=== PATIENT | female | born 2000 | race Caucasian/White ===

== ENCOUNTER 2022-11-02 00:21 | Inpatient (IN) | payer BC, MEDICAID, SELFPAY ==
[2022-11-01 20:45] VITALS: RESP 16; BMI 33.1
[2022-11-01 20:51] VITALS: BP 135/83; PULSE 121
[2022-11-01 21:29] VITALS: BP 135/89; PULSE 112
[2022-11-01] MEDS: dextrose 5%-lactated ringers 1,000 ML 125 ML IV (21:35)
[2022-11-01] MEDS: ampicillin 2,000 MG in sodium chloride 0.9% (plus) 50 ML 100 MG IV (21:36)
[2022-11-01 21:44] VITALS: BP 140/86; PULSE 90
[2022-11-01 21:59] VITALS: BP 133/85; PULSE 105
[2022-11-01 22:07] LABS: Basophils % 0.2 %; Eosinophils # 0.1 10^3/uL (0.0-0.8); Eosinophils % 0.6 %; Hematocrit 42.2 % (37.0-47.0); Hemoglobin 13.4 g/dL (11.5-15.3); Lymphocytes # 1.8 10^3/uL (0.8-4.8); Lymphocytes % 14.3 %; Mean Corpuscular HGB Conc 31.8 g/dL (30.0-36.0); Mean Corpuscular Hemoglobin 27.1 pg (28.0-34.0); Mean Corpuscular Volume 85.4 fl (81-99); Mean Platelet Volume 11.4 fL (7.4-10.4); Monocytes # 0.9 10^3/uL (0.2-0.9); Monocytes % 7.5 %; Nucleated Red Blood Cells % 0 %; Platelet Count 220 10^3/cmm (130-400); Red Blood Count 4.94 10^6/uL (4.1-5.3); Red Cell Distribution Width 15.1 % (12.1-15.1); White Blood Count 12.2 10^3/uL (4.0-10.0)
[2022-11-01 22:32] VITALS: RESP 16
[2022-11-02] VITALS (39 sets, daily range): BP systolic 117–191; BP diastolic 56–110; PULSE 75–133; RESP 15–16; TEMP 36.7–36.8; O2SAT 96–98
[2022-11-02] MEDS: ampicillin 1,000 MG in sodium chloride 0.9% (plus) 50 ML 100 MG IV ×2 (01:30→06:09)
[2022-11-02] MEDS: lactated ringers 1,000 ML 999 ML IV (02:38)
--- NOTE | 2022-11-02 03:00 | ANES.PREANE2 ---
Pre-Anesthetic Assessment Height/Weight: Height 1.63 m Weight 87.543 kg Pulse Resp BP Pulse Ox O2 Del Method 105 H 16 191/81 97 11/02/22 02:58 11/01/22 22:32 11/02/22 02:58 11/02/22 02:53 11/01/22 22:33 Preop Diagnosis: Labor pain KENDRICK Was Beta Kandi taken within 24 hours: N/A Was Clonidine taken within 24 hours: N/A Social No alcohol and No tobacco Exam alert, oriented x 3, clear to auscultation bilaterally and regular rate & rhythm Airway Submandibular: within normal limits Cervical ROM: within normal limits Mallampati: Class II Dentition: full History/ROS No significant history except as noted and No significant complaints Pulmonary None reported CV/HEM None reported None reported Hepatic None reported GI None reported Metabolic None reported Musc/skel None reported Neuropsych None reported Anesthetic Plan ASA status: 2 Anesthesia: Anesthesia Evaluation and Regional (specify below) Risk of > 500 ml blood loss (7ml/kg in children): No Medications/Allergies Home Medications Medication Instructions Recorded Confirmed Last Taken Type prenat.vits,melanie,kcn-[id number] 1 tab PO DAILY 11/01/22 11/01/22 10/31/22 History Allergies Allergy/AdvReac Type Severity Reaction Status Date / Time No Known Allergies Allergy Verified 11/01/22 20:48 Current Medications Generic Name Dose Route Start Last Admin Trade Name Freq PRN Reason Stop Dose Admin Dextrose/Lactated Ringer's 1,000 mls @ 125 mls/hr 11/01/22 21:15 11/02/22 02:38 Dextrose 5%-Lactated Ringers IV Infused .Q8H JIA Infusion Ampicillin Sodium 1,000 mg/ 50 mls @ 100 mls/hr 11/02/22 01:15 11/02/22 02:00 Sodium Chloride IV Infused Q4H JIA Infusion Protocol Ropivacaine 200 mg in 100 mls @ 13 mls/hr 11/02/22 01:45 11/02/22 02:56 Naropin Premix EPIDURAL 13 mls/hr .Q7H42M JIA Administration Lactated Ringer's 1,000 mls @ 999 mls/hr 11/02/22 01:40 11/02/22 02:38 Lactated Ringers IV 999 mls/hr .Q1H1M PRN Administration See label comments PFSH Anesthesia Female Reproductive History : 2 Data Anesthesia 11/01/22 21:26 Short CBC 11/01/22 Range/Units 21:26 WBC 12.2 H (4.0-10.0) 10^3/uL Hgb 13.4 (11.5-15.3) g/dL Hct 42.2 (37.0-47.0) % MCV 85.4 (81-99) fl Plt Count 220 (130-400) 10^3/cmm Neut % (Auto) 77.0 % Neut # (Auto) 9.40 H (1.8-7.7) 10^3/uL Cardiac Studies: No Data to Display
--- NOTE | 2022-11-02 03:05 | ANES.PROC ---
Anesthesia Procedures Procedure/Date: 11/02/22 Epidural: Time Out Performed: Yes Consents Signed: Procedure Consent Consent: requested by attending/covering physician, from patient, risks and benefits reviewed and patient agrees to proceed Lumbar Level: L3-L4 Epidural position: sitting Epidural procedure: sterile prep of area, 1% lidocaine to numb the area, 18 g needle, negative for paresthesia passed, neg for paresthesia, test dose given, 1.5% xylocaine 1:200k epi, 0.2% Ropivacaine bolus ml (4cc and Fentanyl 100mcg), placed PCEA, no systemic response, sterile dressing applied, L.U.D. no apparent complications and 0.2% Ropiavacaine @ mls/hr (13cc/hour) Additional Comments: MARJORIE at 7cm. Pt tolerayed well
[2022-11-02] MEDS: oxytocin 30 UNIT/500 ML BAG 600 UNIT IV (06:29)
[2022-11-02] MEDS: lanolin oint 7 gm 1 APPLIC TOPICAL (09:08)
[2022-11-02] MEDS: prenatal vitamin Capsule 1 CAP PO (09:08)
[2022-11-02] MEDS: ibuprofen 800 mg tablet PO ×3 (09:08→21:07)
[2022-11-02] MEDS: benzocaine-menthol 78 gm Canister 1 SPRAY TOPICAL (09:08)
[2022-11-02] MEDS: docusate sodium 100 mg Capsule PO ×2 (09:08→17:21)
[2022-11-02 19:56] LABS: Hematocrit 38.4 % (37.0-47.0); Hemoglobin 12.3 g/dL (11.5-15.3); Mean Corpuscular Hemoglobin 27.6 pg (28.0-34.0); Mean Corpuscular Volume 86.3 fl (81-99); Mean Platelet Volume 11.6 fL (7.4-10.4); Platelet Count 206 10^3/cmm (130-400); Red Blood Count 4.45 10^6/uL (4.1-5.3)
[2022-11-03 05:30] VITALS: BP 116/75; PULSE 76; RESP 16; O2SAT 97
--- NOTE | 2022-11-03 08:00 | ANE.PACU2 ---
Inpatient post-anesthesia follow up: Airway intact: Yes Vital signs: Temperature 98.2 F Pulse Rate 88 Respiratory Rate 15 Blood Pressure 128/69 Pulse Oximetry 97 Oxygen Delivery Me thod Room Air Oxygen Flow Rate Fraction of Inspir ed Oxygen Hydration adequate: Yes Nausea and vomiting: No Pain level: 1 Mental status: Baseline
[2022-11-03 10:30] VITALS: BP 116/77; PULSE 94; RESP 17; TEMP 36.7; O2SAT 96
[2022-11-03] MEDS: prenatal vitamin Capsule 1 CAP PO (11:02)
[2022-11-03] MEDS: ibuprofen 800 mg tablet PO (11:02)
[2022-11-03] MEDS: docusate sodium 100 mg Capsule PO (11:02)
--- NOTE | 2022-11-03 14:56 | PM.OBGYDC ---
Discharge Providers [employer] Date of Admission: 11/02/22 00:21 Date of Discharge: 11/05/22 Attending Provider at Admission: Dwain Bynum MD Attending Provider at Discharge: Dwain Bynum MD Reason for Visit Reason for Visit: CONTRACTIONS Hospital Course Hospital Course The patient had an unremarkable labor and delivery. Her course was also unremarkable. She breast-fed well. Her pain was well controlled. Her bleeding was within normal limits. Information Peripartum Data: Delivery Method: Vaginal Physical Exam Narrative: The patient is alert. She appears comfortable. Her heart has a regular rate and rhythm with no murmurs appreciated. Lungs are clear to auscultation bilaterally. Her fundus is firm and below the umbilicus. Urinary Catheter Management: Hanks Latex: Cath Placed During This Visit: yes, but has since been removed by the nurse Reason for Continuing Indwelling Catheter: Decision to DC Catheter Urinary Catheter Date of Insertion: 11/02/22 Urinary Catheter Time of Insertion: 03:40 Date Urinary Catheter Removed: 11/02/22 Time Urinary Catheter Discontinued: 06:17 Discharge Data Studies Completed and Pending Laboratory Results WBC 13.0 10^3/uL (4.0-10.0) H 11/02/22 19:40 RBC 4.45 10^6/uL (4.1-5.3) 11/02/22 19:40 Hgb 12.3 g/dL (11.5-15.3) 11/02/22 19:40 Hct 38.4 % (37.0-47.0) 11/02/22 19:40 MCV 86.3 fl (81-99) 11/02/22 19:40 MCH 27.6 pg (28.0-34.0) L 11/02/22 19:40 MCHC 32.0 g/dL (30.0-36.0) 11/02/22 19:40 RDW 15.0 % (12.1-15.1) 11/02/22 19:40 Plt Count 206 10^3/cmm (130-400) 11/02/22 19:40 MPV 11.6 fL (7.4-10.4) H 11/02/22 19:40 Neut % (Auto) 77.0 % 11/01/22 21:26 Lymph % (Auto) 14.3 % 11/01/22 21: Am[place] % (Auto) 7.5 % 11/01/22 21: Eos % (Auto) 0.6 % 11/01/22: Baso % (Auto) 0.2 % 11/01/22: Neut # (Auto) 9.40 10^3/uL (1.8-7.7) H 11/01/22: Lymph # (Auto) 1.8 10^3/uL (0.8-4.8) 11/01/22: Am[place] # (Auto) 0.9 10^3/uL (0.2-0.9) 11/01/22: Eos # (Auto) 0.1 10^3/uL (0.0-0.8) 11/01/22: Baso # (Auto) 0.0 10^3/uL (0.0-0.1) 11/01/22: Nucleated RBC % (auto) 0 % 11/01/22: Nucleated RBCs # 0.0 /100WBC 11/01/22 21: Blood Type O Positive 11/01/22 21: Rho(D) Type Positive 11/01/22 21: Vitals Last Vital Signs Temp 98.1 F 11/03/22 10:30 Pulse 94 11/03/22 10:30 Resp 17 11/03/22 10:30 BP 116/77 11/03/22 10:30 Pulse Ox 96 11/03/22 10:30 O2 Del Method 11/03/22 10:30 Discharge Plan Discharge Patient Disposition: Home Condition: Stable Prescriptions: New ibuprofen 800 mg Tablet 800 mg PO TID Qty: 45 0RF Continued prenat.vits,melanie,bvz-[id number] Tablet 1 tab PO DAILY Discharge Orders: Discharge Order (Routine); Ordered 11/03/22 Ordered By: Dwain Bynum Referrals: Dwain Bynum MD [Physician] - 6 Weeks (Your [address] Bynum will be December at 12:30pm.) Discharge Diet: Usual diet Discharge Activity: Limit activity as instructed Patient Instructions: Depression (DC), Preeclampsia and Eclampsia After Delivery (GEN), Hemorrhage (DC), OB Discharge Report, OB Food/Drug Interaction Guide, Opioid Safety, OB Home Care, OB Vaginal Deliveries, Abnormal Bleeding Discharge Attestations [employer] Time Spent in Discharge Care*: less than 30 min Coding Level of Care Code Acute Code for Chg Fwd
[2022-11-03 16:00] VITALS: BP 128/69; PULSE 88; RESP 15; TEMP 36.8; O2SAT 97
[2022-11-03 16:33] VITALS: BP 128/69; PULSE 88; RESP 15; TEMP 36.8; O2SAT 97
--- NOTE | 2022-11-11 12:19 | PM.OPHPUD ---
Labor & Delivery H&P Update Date of Procedure: November 02 Date H&P Performed: 10/31/22 Changes to previous documentation: Cervical change with contractions noted Admission Diagnosis: 22-year-old 2 para 1-0-0-1 at 37 weeks presenting to the hospital in active labor. Preop diagnosis: Labor pain Planned procedure: Spontaneous vaginal delivery Other information: The patient presented to the hospital in active labor. Her had been relatively unremarkable otherwise. Her blood type was O+. Her antibody screen was negative. She was GBS positive. Her hepatitis B antigen initially showed positive but confirmatory tests were negative showing no viruses in her system. The remainder of her OB labs are within normal limits. Related Problem List Diagnoses (1) 37 weeks gestation of : (2) Positive testing for group B Streptococcus: A&P Assessment and plan (1) 37 weeks gestation of : I anticipate routine and vaginal delivery. Status: Acute (2) Positive testing for group B Streptococcus: The patient has been placed on group B strep positive protocol Status: Acute
--- NOTE | 2022-11-11 12:25 | PM.DELIVERY ---
Delivery Note: Date of delivery: November 02 Pre-delivery diagnoses: 1. 22-year-old 2 para 1-0-0-1 at 38 weeks estimated gestational age presenting in active labor 2. GBS positive status Post-delivery diagnoses: Status post spontaneous vaginal delivery Procedure: Spontaneous vaginal delivery Delivering Physician: Dwain Bynum Estimated blood loss (mL): 100 Pre-Delivery Course: The patient presented to the hospital in active labor. She was placed on GBS protocol. She progressed to complete without difficulty. Delivery: DELIVERY: The patient progressed to complete without difficulty. She delivered a female with a weight of 2580 g with Apgars of 6, 9. The baby was delivered from the CLIVE position. The baby's mouth and nose were suctioned at the site of the perineum. The baby was then completely delivered and placed on the mother's abdomen. The cord was then clamped and cut. There was no nuchal cord. There was no meconium. The placenta and 3 vessel cord were delivered intact shortly thereafter. The perineum and vaginal vault were carefully examined. No lacerations were noted. Both the mother and the baby were in stable condition. Post-Delivery Status: Good A&P Assessment and plan (1) Positive testing for group B Streptococcus: (2) Spontaneous vaginal delivery: (3) 38 weeks gestation of : I anticipate routine care Coding Level of Care Code Acute Code for Chg Fwd Diagnoses Positive testing for group B Streptococcus B95.1 Spontaneous vaginal delivery O80 38 weeks gestation of Z3A.38
== END 2022-11-03 16:20 | disposition home or self-care (01) | DRG 807 ==
LOC: OPOB 00:22 → OBGYN 00:22
PROVIDERS: Admitting Provider Family Medicine; Visit Provider Family Medicine
DX: O99.824 Streptococcus B carrier state complicating childbirth (principal); Z37.0 Single live birth; Z3A.38 38 weeks gestation of pregnancy
CPT/HCPCS: 12345; 36415; 51702; 59025; 59409; 85025; 85027; 86900; 96374; 99211; J0290; J2590; J2795; J3010; J7120; J7121

== ENCOUNTER 2022-12-09 20:09 | Emergency (ER) | payer BC, MEDICAID, SELFPAY ==
[2022-12-09 20:54] VITALS: BP 121/79; PULSE 91; RESP 18; TEMP 37.1; O2SAT 98
[2022-12-09 21:33] LABS: Basophils # 0.1 10^3/uL (0.0-0.1); Basophils % 0.6 %; Eosinophils # 0.2 10^3/uL (0.0-0.8); Eosinophils % 1.9 %; Hematocrit 42.2 % (37.0-47.0); Lymphocytes # 2.7 10^3/uL (0.8-4.8); Lymphocytes % 27.9 %; Mean Corpuscular HGB Conc 30.8 g/dL (30.0-36.0); Mean Corpuscular Hemoglobin 26.6 pg (28.0-34.0); Mean Corpuscular Volume 86.5 fl (81-99); Mean Platelet Volume 10.3 fL (7.4-10.4); Monocytes # 0.6 10^3/uL (0.2-0.9); Monocytes % 6.6 %; Neutrophils # 5.99 10^3/uL (1.8-7.7); Neutrophils % 62.7 %; Nucleated Red Blood Cells % 0 %; Platelet Count 275 10^3/cmm (130-400); Red Blood Count 4.88 10^6/uL (4.1-5.3); Red Cell Distribution Width 14.6 % (12.1-15.1); White Blood Count 9.6 10^3/uL (4.0-10.0)
--- NOTE | 2022-12-09 21:36 | ED_ITS ---
HPI - Female Genitourinary General: Chief complaint: Vaginal Bleeding Stated complaint: 6 wks heavy bleeding Time Seen by Provider: 12/09/22 21:34 History of Present Illness: Ms. Causey is a 22-year-old female currently from on 11/02/2022 presented to the emergency department for heavy vaginal bleeding. She reports improving lochia with really minimal amount of residual bleeding up until 3 or 4 days ago when she began passing heavy clots and at times bright red blood. Denies associated pain or other vaginal discharge. Has not had lightheadedness or dizziness. Overall this has been heavier than normal period. She is currently breast-feeding and with prior did not have this issue. Overall course of symptoms has persisted. Denies other sources of bleeding/bruising, no history of bleeding disorder. No other specific changes in health, exacerbating, or alleviating factors identified. Onset (ago): day(s) Severity: moderate Vaginal bleeding: moderate and bright red Associated symptoms: Reports vaginal bleeding Review of Systems General: Reports: 10 or more systems reviewed and unremarkable except in HPI and below PFSH ED PFSH: Medical History (Updated 12/24/22 @ 04:34 by Jordan Ugarte MD) No significant past medical history Surgical History (Updated 12/24/22 @ 04:34 by Jordan Ugarte MD) No significant past surgical history Family History (Updated 12/24/22 @ 04:34 by Jordan Ugarte MD) Denies family history of Clotting disorder Bleeding disorder Physical Exam Const: COMMON NORMALS: alert GENERAL APPEARANCE: cooperative and well developed HENMT: COMMON NORMALS: normocephalic and atraumatic HEAD & SCALP: normocephalic and atraumatic THROAT: posterior oropharynx normal Eye: COMMON NORMALS: conjunctivae normal CONJUNCTIVA: Yes conjunctivae normal SCLERA: sclerae normal Neck/C-Spine: COMMON NORMALS: supple GENERAL: Yes trachea midline Resp: COMMON NORMALS: normal respiratory effort EFFORT & INSPECTION: Yes able to speak in complete sentences Cardio: COMMON NORMALS: regular rate and regular rhythm RATE: regular rate RHYTHM: regular rhythm GI: COMMON NORMALS: Soft to palpation PALPATION: Yes Soft to palpation and No Tenderness to palpation present (GI) : COMMON NORMALS: Yes normal bimanual exam EXTERNAL FEMALE EXAM: No externally tender, No external swelling and No lesion SPECULUM EXAM - VAGINA: No erythematous, No foreign body and Yes vaginal bleeding SPECULUM EXAM - CERVIX: Yes Cervical os closed BIMANUAL EXAM - VAGINA & UTERUS: Yes normal bimanual exam OB/EXTERNAL & SPECULUM: vaginal bleeding; no foreign bodies OTHER: Chaparone present Extremity: GENERAL: Yes normal exam except as noted and No edema Neuro: COMMON NORMALS: moves all extremities SENSORIUM/ORIENTATION: Yes alert and No Orientation impaired Psych: COMMON NORMALS: mental status grossly normal and Normal thought process present THOUGHT PROCESS: Normal thought process present Course Vital Signs: Vital signs: Vital Signs Temperature 98 F 12/09/22 23:27 Pulse Rate 90 12/10/22 00:34 Respiratory Rate 18 12/10/22 00:34 Blood Pressure 110/63 12/09/22 23:27 Pulse Oximetry 100 12/10/22 00:34 Oxygen Delivery Me thod Room Air 12/09/22 23:27 MDM - Female Medical Decision Making 22-year-old female in the state now presenting with increased bleeding that had initially nearly resolved. Patient is breast-feeding. No history of similar. No bleeding disorders. No known precipitating event. Labs with stable hemoglobin, no significant metabolic electrolyte abnormality, mildly elevated creatinine. Ultrasound with no specific abnormality to explain symptoms. Patient treated with IV fluids and case discussed with patient's delivering physician. Plan to treat with medication. The results of ED evaluation were discussed with the patient including prescriptions and/or symptomatic cares (if applicable) including appropriate and responsible use, followup plan, and return precautions. The patient verbalized understanding and felt safe for discharge. Medical Records I reviewed the patient's medical records. Lab Data I reviewed the patient's lab results. 12/09/22 21:15 12/09/22 21:15 Radiology Impressions Pelvic/Transvag US 12/09/22 22:24 IMPRESSION: Normal transabdominal and transvaginal pelvic sonography Laboratory Results WBC 9.6 10^3/uL (4.0-10.0) 12/09/22 21:15 RBC 4.88 10^6/uL (4.1-5.3) 12/09/22 21:15 Hgb 13.0 g/dL (11.5-15.3) 12/09/22 21:15 Hct 42.2 % (37.0-47.0) 12/09/22 21:15 MCV 86.5 fl (81-99) 12/09/22 21:15 MCH 26.6 pg (28.0-34.0) L 12/09/22 21:15 MCHC 30.8 g/dL (30.0-36.0) 12/09/22 21:15 RDW 14.6 % (12.1-15.1) 12/09/22 21:15 Plt Count 275 10^3/cmm (130-400) 12/09/22 21:15 MPV 10.3 fL (7.4-10.4) 12/09/22 21:15 Neut % (Auto) 62.7 % 12/09/22 21:15 Lymph % (Auto) 27.9 % 12/09/22 21:15 Martin % (Auto) 6.6 % 12/09/22 21:15 Eos % (Auto) 1.9 % 12/09/22 21:15 Baso % (Auto) 0.6 % 12/09/22 21:15 Neut # (Auto) 5.99 10^3/uL (1.8-7.7) 12/09/22 21:15 Lymph # (Auto) 2.7 10^3/uL (0.8-4.8) 12/09/22 21:15 Martin # (Auto) 0.6 10^3/uL (0.2-0.9) 12/09/22 21:15 Eos # (Auto) 0.2 10^3/uL (0.0-0.8) 12/09/22 21:15 Baso # (Auto) 0.1 10^3/uL (0.0-0.1) 12/09/22 21:15 Nucleated RBC % (auto) 0 % 12/09/22 21:15 Nucleated RBCs # 0.0 /100WBC 12/09/22 21:15 PT 14.10 SECONDS (12.1-14.9) 12/09/22 21:15 INR 1.06 (0.8-1.2) 12/09/22 21:15 APTT 32.1 SECONDS (23.9-36.7) 12/09/22 21:15 Sodium 141 mmol/L (136-145) 12/09/22 21:15 Potassium 4.1 mmol/L (3.5-5.1) 12/09/22 21:15 Chloride 107 mmol/L (98-107) 12/09/22 21:15 Carbon Dioxide 25 mmol/L (22-29) 12/09/22 21:15 Anion Gap 13.1 (5-19) 12/09/22 21:15 BUN 14 mg/dL (6-20) 12/09/22 21:15 Creatinine 1.3 mg/dL (0.5-0.9) H 12/09/22 21:15 GFR Calculation 51.7 mL/min (90-130) L 12/09/22 21:15 Glucose 85 mg/dL (65-115) 12/09/22 21:15 Calculated Osmolality 292 mOsm/kg (285-295) 12/09/22 21:15 Calcium 9.1 mg/dL (8.5-10.5) 12/09/22 21:15 Total Bilirubin 0.2 mg/dL (0.15-1.2) 12/09/22 21:15 AST 21 U/L (0-32) 12/09/22 21:15 ALT 28 U/L (0-33) 12/09/22 21:15 Alkaline Phosphatase 93 U/L (35-105) 12/09/22 21:15 Total Protein 7.7 g/dL (6.6-8.7) 12/09/22 21:15 Albumin 4.3 g/dL (3.5-5.2) 12/09/22 21:15 Globulin 3.4 g/dL (1.3-4.6) 12/09/22 21:15 Discharge Plan Discharge Patient Disposition: Home Clinical Impression: bleeding Condition: Stable Prescriptions: No Action prenat.vits,melanie,[id number] Tablet 1 tab PO DAILY ibuprofen 800 mg Tablet 800 mg PO TID Qty: 45 0RF Discharge Orders: Discharge ED (Routine); Ordered 12/10/22 Ordered By: Javier Frias Referrals: Dwain Bynum MD [Primary Care Provider] - Discharge Diet: Usual diet Discharge Activity: Limit activity as instructed Patient Instructions: Abnormal Bleeding Activity Restrictions/Additional Instructions: Thank you for visiting the emergency department. You were seen and evaluated for abnormal increase in bleeding in the state. The exact cause of the symptoms is unclear. In discussion with your physician we will prescribe Cytotec. Please follow-up with Dr. Byunm next week. Return to the emergency department for worsening symptoms, shortness of breath, chest pain, racing heart, lightheadedness, fainting, or anything else that you are concerned about and feel needs emergency department evaluation. Coding Level of Care Code ED Adult Literacy Teacher for Alayna Moreira
[2022-12-09 21:55] LABS: Alanine Aminotransferase 28 U/L (0-33); Albumin Level 4.3 g/dL (3.5-5.2); Alkaline Phosphatase 93 U/L (35-105); Anion Gap 13.1 (5-19); Aspartate Amino Transferase 21 U/L (0-32); Blood Urea Nitrogen 14 mg/dL (6-20); Calcium 9.1 mg/dL (8.5-10.5); Carbon Dioxide 25 mmol/L (22-29); Chloride 107 mmol/L (98-107); Globulin 3.4 g/dL (1.3-4.6); Glomerular Filtration Rate 51.7 mL/min (90-130); Glucose 85 mg/dL (65-115); Osmolality Calculated 292 mOsm/kg (285-295); Potassium 4.1 mmol/L (3.5-5.1); Sodium 141 mmol/L (136-145); Total Bilirubin 0.2 mg/dL (0.15-1.2); Total Protein 7.7 g/dL (6.6-8.7)
[2022-12-09 22:10] LABS: INR 1.06 (0.8-1.2)
[2022-12-09 22:11] LABS: Partial Thromboplastin Time 32.1 SECONDS (23.9-36.7)
--- NOTE | 2022-12-09 22:24 | USR_ITS ---
PROCEDURE INFORMATION: Exam: US Pelvis Complete, Transabdominal and US Pelvis, Transvaginal Exam date and time: 12/09/2022 10:48 PM Age: 22 years old Clinical indication: Menstruation abnormalities; Excessive menstruation; Other: Post ; Additional info: Increased bleeding for 4 days, post 11/11/22 TECHNIQUE: Imaging protocol: Real-time complete transabdominal and transvaginal pelvic ultrasound with image documentation. Transvaginal imaging was used for better evaluation of the endometrium, adnexa, and/or cervix. COMPARISON: [place] [id number] 08/01/2022 10:13 AM FINDINGS: Uterus: The uterus measures 8.5 x 5.4 x 4.0 cm. Homogeneous hyperechoic endometrial stripe is seen measuring 5 mm. Right ovary/adnexa: The right ovary measures 3.1 x 2.1 x 2.3 cm. Vascular flow is demonstrated within the right ovary with color Doppler and duplex waveform sonography. There is an anechoic cystic mass seen within the right ovary that measures 1.7 x 1.0 x 1.4 cm. Left ovary/adnexa: The left ovary measures 3.2 x 1.1 x 2.5 cm. Vascular flow is demonstrated within the left ovary with color Doppler and duplex waveform sonography. Intraperitoneal space: Tiny volume of anechoic fluid is seen within the cul-de-sac likely commensurate with the patient's age and menstrual status. Urinary bladder: Normal. US/US pelv w/transvag [id number] IMPRESSION: Normal transabdominal and transvaginal pelvic sonography
[2022-12-09] MEDS: sodium chloride 0.9% 1,000 ML 999 ML IV (22:45)
[2022-12-09 23:27] VITALS: BP 110/63; PULSE 67; RESP 16; TEMP 36.6; O2SAT 98
[2022-12-09 23:30] VITALS: RESP 18
[2022-12-10 00:34] VITALS: PULSE 90; RESP 18; O2SAT 100
== END 2022-12-10 00:42 | disposition home or self-care (01) ==
PROVIDERS: Emergency Medicine; Emergency Provider Emergency Medicine; PCP Family Medicine
DX: O72.2 Delayed and secondary postpartum hemorrhage (principal)
CPT/HCPCS: 36415; 76830; 76856; 80053; 85025; 85610; 85730; 87210; 99285; J7030